=== PATIENT | male | born 1940 | race African-American/Black ===

== ENCOUNTER → 2016-10-22 | Outpatient (CLI) | payer OTHER, MEDICARE ==
[2016-10-22 12:53] LABS: ALANINE AMINOTRANSFERASE 41 U/L (21-72); ALBUMIN 2.8 g/dL (3.5-5.0); ALKALINE PHOSPHATASE 53 U/L (38-126); ANION GAP 11 (5-19); ASPARTATE AMINO TRANSFERASE 23 U/L (17-59); BILIRUBIN,TOTAL 0.2 mg/dL (0.2-1.3); BLOOD UREA NITROGEN 23 mg/dL (7-20); CARBON DIOXIDE 25 mmol/L (22-30); CHLORIDE 101 mmol/L (98-107); CREATININE RESULT 1.09 mg/dL (0.52-1.25); GLUCOSE 111 mg/dL (75-110); SODIUM 136.6 mmol/L (137-145); TOTAL PROTEIN 5.5 g/dL (6.3-8.2)
== END ==
LOC: OD 11:28
PROVIDERS: ATTEND Internal Medicine Geriatric Medicine
DX: R63.4 Abnormal weight loss (principal)
CPT/HCPCS: 36415; 80053

== ENCOUNTER 2016-10-30 07:00 | Day surgery (SDC) | payer OTHER, MEDICARE ==
[2016-10-30] MEDS ORDERED: NALOXONE HCL INJ/PF 0.4 MG/1 ML SDV ONE (07:18)
[2016-10-30] MEDS ORDERED: ONDANSETRON HCL INJ/PF 4 MG/2 ML SDV ONE (07:18)
[2016-10-30] MEDS ORDERED: PROMETHAZINE HCL INJ 25 MG/1 ML VIAL ONE (07:18)
[2016-10-30] MEDS ORDERED: DIPHENHYDRAMINE HCL 50 MG/ML VIAL ONE (07:18)
[2016-10-30] MEDS ORDERED: FLUMAZENIL INJ 0.5 MG/5 ML VIAL IV ONE (07:20)
[2016-10-30] MEDS ORDERED: EPINEPHRINE INJ 1 MG/10 ML DISP.SYRIN ONE (07:20)
[2016-10-30] MEDS ORDERED: GLUCAGON,HUMAN RECOMB 1 MG INJ ONE (07:20)
[2016-10-30] MEDS: MIDAZOLAM 2 MG/2 ML INJ ONE ×3 (08:00→08:10)
[2016-10-30] MEDS: FENTANYL CITRATE INJ/PF 100 MCG/2 ML AMPUL ONE ×3 (08:03→08:30)
[2016-10-30 09:39] VITALS: BP 115/61
--- NOTE | 2016-10-30 09:52 | Operative Report ---
Operative Report DATE OF SURGERY: 10/30/16 Operative Report: The risks, benefits and alternatives of the procedure including risks of bleeding, perforation requiring surgery are explained to the patient detail and informed consent is obtained. Patient is taken to the endoscopy suite. Patient is placed in a left lateral decubital position. Timeout is called. Conscious sedation medications are provided. A rectal examination was done which did not reveal any masses, tears or fissures. An Olympus videoscope was inserted into the patient's rectum. Keeping the lumen in site at all times the scope was then gradually advanced all the way to the cecum. The cecum as identified by the usual anatomical landmarks of the ileocecal valve as well as the appendiceal office. Photodocumentation was obtained. Prep was reasonably good. The scope was then sequentially pulled back via the rest segments of the colon including the ascending colon, hepatic flexure, transverse colon, splenic flexure, descending colon and finally into the rectosigmoid colon. Retroflexion maneuvers performed. Following this the patient's stretcher was turned around and EGD performed.The risks benefits and alternatives of the procedure explained to the patient in detail and informed consent is obtained that GIF Olympus video scope was inserted into the patient's mouth and hypopharynx the esophagus is identified intubated and insufflated the scope was then advanced through the esophagus stomach and duodenum retroflexion maneuver is done the esophagus stomach and first and second portions of the duodenum examined PREOPERATIVE DIAGNOSIS: Index screening colonoscopy. Weight loss. Loss of appetite. Dysgeusia POSTOPERATIVE DIAGNOSIS: 1 right-sided colon biopsies to rule out Crohn's colitis. 2 redundant colon. 3 internal hemorrhoids. 4 gastritis, biopsies obtained to rule out for Helicobacter pylori. 5 duodenitis OPERATION: Colonoscopy with biopsy. EGD with biopsy SURGEON: CINTHIA TIRADO ANESTHESIA: Moderate Sedation - 4 mg of Versed, 75 micrograms of fentanyl. TISSUE REMOVED OR ALTERED: Gastric specimens obtained. Colon specimens obtained COMPLICATIONS: None. ESTIMATED BLOOD LOSS: none. INTRAOPERATIVE FINDINGS: Normal esophagus. No masses, AVMs, diverticulosis noted in the colon. Internal hemorrhoids PROCEDURE: Patient tolerated the procedure well. No immediate postprocedure complications are noted. Patient is discharged in good condition. Discharge date 10/30/2016. Discharge diet: Regular. Discharge activity: Regular. Patient does have a 2-3 week follow-up to discuss findings Patient is instructed to go to the emergency room or call the office should there be any further problems or questions If biopsies are negative surveillance colonoscopy in 10 years
== END 2016-10-30 09:40 | disposition home or self-care (01) ==
LOC: END 07:00
PROVIDERS: ATTEND Internal Medicine Gastroenterology
PROC: 0DB68ZX Excision of Stomach, Via Natural or Artificial Opening Endoscopic, Diagnostic (ICD-10-PCS; principal; 2016-10-30 08:00)
PROC: 0DBF8ZX Excision of Right Large Intestine, Via Natural or Artificial Opening Endoscopic, Diagnostic (ICD-10-PCS; 2016-10-30 08:00)
DX: K29.50 Unspecified chronic gastritis without bleeding (principal); K64.8 Other hemorrhoids; Q43.8 Other specified congenital malformations of intestine; R19.4 Change in bowel habit; I10 Essential (primary) hypertension; Z79.1 Long term (current) use of non-steroidal anti-inflammatories (NSAID); Z79.899 Other long term (current) drug therapy
CPT/HCPCS: 43239; 45380; 88342 ×2; 88305 ×2; J2250; J3010; J0171; J1200; J1610; J2310; J2405; J2550; J3490

== ENCOUNTER → 2016-12-02 | Outpatient (CLI) | payer MEDICARE, OTHER | LOC: OD 13:53 | PROVIDERS: ATTEND Urology | DX: N40.2 Nodular prostate without lower urinary tract symptoms (principal) | CPT/HCPCS: 36415; 84153 ==